=== PATIENT | female | born 1955 | race Caucasian/White ===

== ENCOUNTER → 2016-05-03 | Outpatient (CLI) | payer BC ==
[~2016-05-03] MED LIST: ANTIVERT 12.512.5 MG PO; ATENOLOL50 MG PO; CLARITIN10 M2 PO; CRESTOR20 MG PO; DYMISTA NASAL S23 GM; FISH OIL PO; LANSOPRAZOLE30 MG PO; LEVAQUIN750 MG PO; LORATADINE10 MG PO; MONTELUKAST SOD10 MG PO; NORVASC 5 MG TAB5 MG PO; OSTEO BI-FLEX1 EAC1 PO; PHILLIPS MILK PO; PREVACID30 MG PO; PROBIOTIC1 EAC1 PO; PROTONIX 40 MG40 M1 PO; PROVENTIL HFA 61 INH INH; QVAR8.7 G1 INH; REQUIP1 MG PO; SINGULAIR10 MG PO; SYNTHROID 88 M88 MCG PO; SYNTHROID88 MCG PO; TENORMIN 50 MG50 MG PO; TESSALON PERLE100 MG PO; VIT E PO; ZOFRAN4 MG PO
== END ==
LOC: RAD 10:11
DX: R10.84 Generalized abdominal pain (principal)
CPT/HCPCS: 74020

== ENCOUNTER → 2016-05-23 | Day surgery (SDC) | payer BC ==
[~2016-05-23] VITALS: Ht 177.8 cm; Wt 99.8 kg
== END | disposition home or self-care (01) ==
LOC: OR 08:07
PROVIDERS: Internal Medicine Gastroenterology
PROC: 0DB68ZX Excision of Stomach, Via Natural or Artificial Opening Endoscopic, Diagnostic (ICD-10-PCS; principal; 2016-05-23 15:45)
DX: K29.70 Gastritis, unspecified, without bleeding (principal); K44.9 Diaphragmatic hernia without obstruction or gangrene; I10 Essential (primary) hypertension; J45.909 Unspecified asthma, uncomplicated; K21.9 Gastro-esophageal reflux disease without esophagitis; K59.09 Other constipation; E66.9 Obesity, unspecified; Z87.19 Personal history of other diseases of the digestive system; Z79.891 Long term (current) use of opiate analgesic; Z79.899 Other long term (current) drug therapy; Z98.51 Tubal ligation status; Z90.49 Acquired absence of other specified parts of digestive tract; Z80.0 Family history of malignant neoplasm of digestive organs
CPT/HCPCS: J2250; J3010; J7030

== ENCOUNTER 2020-05-01 14:16 | Emergency (ER) | payer OTHER ==
[~2020-05-01 14:16] MED LIST changes: +CEFDINIR300 MG PO; +DOXYCYCLINE MO100 M1 PO; +FISH OIL 1,0001 EACH PO; +FLAGYL500 MG PO; +MEDROL4 MG PO; +NASONEX17 GM; +ROBITUSSIN DM473 ML PO; +TYLENOL 325MG325 MG PO; +TYLENOL W/CODEIN1 E1 PO; +VENTOLIN/PROVE0.5 ML INH
[2020-05-02] MEDS ORDERED: ZOFRAN4 MG PO (10:42)
[2020-05-02] MEDS ORDERED: CEFUROXIME500 MG PO (10:42)
== END 2020-05-01 15:15 | disposition home or self-care (01) ==
LOC: ER1 14:16
DX: R10.84 Generalized abdominal pain (principal); Z88.1 Allergy status to other antibiotic agents; E07.9 Disorder of thyroid, unspecified; I10 Essential (primary) hypertension
CPT/HCPCS: 96374; 99283; J7040; Q9967

== ENCOUNTER 2020-05-02 08:17 | Emergency (ER) | payer OTHER ==
[2020-05-02 09:31] LABS: HEMOGLOBIN 13.3 gm/dl (12.3-15.3); RED BLOOD COUNT 4.49 M/UL (4.00-5.10); WHITE BLOOD COUNT 7.5 K/UL (4.5-11.0)
[2020-05-02 09:51] LABS: BUN/CREATININE RATIO 30 (0-10)
[2020-05-02] MEDS ORDERED: CEFUROXIME500 MG PO (10:42)
[2020-05-02] MEDS ORDERED: ZOFRAN4 MG PO (10:42)
== END 2020-05-02 11:00 | disposition home or self-care (01) ==
LOC: ER1 08:17
PROVIDERS: Physician Assistant
DX: N39.0 Urinary tract infection, site not specified (principal); R19.7 Diarrhea, unspecified; I10 Essential (primary) hypertension; J45.909 Unspecified asthma, uncomplicated; E03.9 Hypothyroidism, unspecified; Z90.49 Acquired absence of other specified parts of digestive tract; Z88.1 Allergy status to other antibiotic agents
CPT/HCPCS: 80053; 81001; 85025; 87077; 87086; 87186; 93005; 96374; 99284; J2405; J7040; Q9967

== ENCOUNTER → 2020-05-15 | Outpatient (CLI) | payer OTHER ==
[~2020-05-15] VITALS: Ht 177.8 cm; Wt 99.8 kg
[~2020-05-15] MED LIST changes: +CEFUROXIME500 MG PO
== END ==
LOC: OPSV 07:41
DX: N30.00 Acute cystitis without hematuria (principal); B96.20 Unspecified Escherichia coli [E. coli] as the cause of diseases classified elsewhere
CPT/HCPCS: 96372; J0696

== ENCOUNTER → 2020-05-16 | Outpatient (CLI) | payer OTHER ==
[~2020-05-16] VITALS: Ht 177.8 cm; Wt 99.8 kg
== END ==
LOC: OPSV 07:19
DX: N30.00 Acute cystitis without hematuria (principal); B96.20 Unspecified Escherichia coli [E. coli] as the cause of diseases classified elsewhere
CPT/HCPCS: 96372; J0696

== ENCOUNTER 2020-05-17 13:29 | Emergency (ER) | payer OTHER ==
[2020-05-17 18:37] LABS: HEMOGLOBIN 13.8 gm/dl (12.3-15.3); RED BLOOD COUNT 4.68 M/UL (4.00-5.10); WHITE BLOOD COUNT 6.8 K/UL (4.5-11.0)
[2020-05-17 18:51] LABS: BUN/CREATININE RATIO 19 (0-10)
== END 2020-05-17 20:35 | disposition home or self-care (01) ==
LOC: ER1 13:29
PROVIDERS: Nurse Practitioner
DX: R10.84 Generalized abdominal pain (principal); I10 Essential (primary) hypertension; J45.909 Unspecified asthma, uncomplicated; Z90.49 Acquired absence of other specified parts of digestive tract
CPT/HCPCS: 80053; 81001; 83605; 83690; 85025; 87086; 99284

== ENCOUNTER → 2021-01-27 | Outpatient (CLI) | payer OTHER | LOC: CT 13:30 | DX: R10.815 Periumbilic abdominal tenderness (principal) | CPT/HCPCS: 36415; 82565; Q9967 ==

== ENCOUNTER → 2021-03-04 | Outpatient (CLI) | payer OTHER ==
[~2021-03-04] MED LIST changes: +FISH OIL 1,0001 EAC1 PO; +MAGNESIUM500 MG PO; +SYMBICORT INH; +SYNTHROID100 MCG PO; -SYNTHROID88 MCG PO
[2021-03-04 10:46] LABS: HEMOGLOBIN 13.1 gm/dl (12.3-15.3); RED BLOOD COUNT 4.63 M/UL (4.00-5.10); WHITE BLOOD COUNT 10.1 K/UL (4.5-11.0)
[2021-03-04 11:08] LABS: BUN/CREATININE RATIO 24 (0-10)
== END ==
LOC: OPSV2 10:00
PROVIDERS: Obstetrics & Gynecology
DX: Z01.812 Encounter for preprocedural laboratory examination (principal)
CPT/HCPCS: 36415; 80053; 81001; 85025

== ENCOUNTER → 2021-03-10 | Day surgery (SDC) | payer OTHER ==
[~2021-03-10] MED LIST changes: +HYDROCODON-ACE1 EAC6 PO; +OMEPRAZOLE20 M1 PO
== END | disposition home or self-care (01) ==
LOC: OR 05:11
DX: N85.8 Other specified noninflammatory disorders of uterus (principal); R10.30 Lower abdominal pain, unspecified; I10 Essential (primary) hypertension; J45.909 Unspecified asthma, uncomplicated; K21.9 Gastro-esophageal reflux disease without esophagitis; Z88.1 Allergy status to other antibiotic agents; Z79.899 Other long term (current) drug therapy; Z20.822 Contact with and (suspected) exposure to COVID-19
CPT/HCPCS: 71045; 93005; J1100; J1885; J2405; J2704; J2795; J7120

== ENCOUNTER → 2021-06-14 | Outpatient (CLI) | payer OTHER | LOC: EXRD 06-02 14:30 | DX: I67.89 Other cerebrovascular disease (principal); I65.23 Occlusion and stenosis of bilateral carotid arteries | CPT/HCPCS: 93880 ==